=== PATIENT | male | born 1945 | race Caucasian/White ===

== ENCOUNTER → 2017-11-02 | Outpatient (CLI) | payer MEDICARE ==
--- NOTE | 2017-11-02 15:18 | CT ---
EXAMINATION TYPE: CT lumbar spine wo con DATE OF EXAM: 11/02/2017 COMPARISON: NONE HISTORY: Lower back/right leg pain. CT DLP: 1353.[address] of the lumbar spine was performed. Bone and soft tissue window settings are submitted as well as coronal and sagittal reconstructions. L1-L2: Normal disc space height. No disc herniation protrusion or central stenosis. No facet joint arthropathy. No evidence for foraminal encroachment. L2-L3: Vacuum disc changes compatible with severe degenerative disc disease. Posterior disc bulge is mild effacement ventral thecal sac. No herniation or central stenosis. Foramina are patent bilaterall y. L3-L4: Moderate degenerative disc space narrowing. Evaluation of this level is limited by streak brandee fact from pedicular screws at the L4 level. There appears to be mild disc bulge. No obvious herniatio n or central stenosis seen. L4-L5: Postoperative changes of lumbar laminectomy. Pedicular screws in place. Extensive streak artif act limits evaluation. Alignment is within normal limits. L5-S1: Postoperative changes of lumbar laminectomy. Pedicular screws in place. Extensive streak artif act limits evaluation. There is grade 1 anterolisthesis L5 on S1 measuring 7.3 mm. Examination is sahni ited with regards to exclusion of recurrent disease. No paraspinal masses are identified. Lumbar segments are free if fracture. IMPRESSION: 1. Postoperative changes of lumbar laminectomy and pedicular screw placement at L4-5 and L5-S1. Grade 1 anterolisthesis L5 on S1. Limited evaluation given streak artifact. 2. Degenerative disc disease with vacuum disc and disc bulging at L2-3.
== END | disposition home or self-care (01) ==
LOC: RADCTMAIN 14:27
PROVIDERS: ATTEND Family Medicine
DX: M43.16 Spondylolisthesis, lumbar region (principal); M51.36 Other intervertebral disc degeneration, lumbar region; Z98.890 Other specified postprocedural states
CPT/HCPCS: 72131

== ENCOUNTER → 2018-11-03 | Outpatient (CLI) | payer MEDICARE | LOC: LABWHC1 11:14 | PROVIDERS: ATTEND Psychiatry & Neurology Pain Medicine | DX: Z51.81 Encounter for therapeutic drug level monitoring (principal) | CPT/HCPCS: 36415; 82565; 84520 ==

== ENCOUNTER → 2019-02-26 | Outpatient (CLI) | payer MEDICARE ==
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
== END | disposition home or self-care (01) ==
LOC: SLEEP 13:26
PROVIDERS: ATTEND Internal Medicine Critical Care Medicine
DX: G47.33 Obstructive sleep apnea (adult) (pediatric) (principal); G89.29 Other chronic pain; M79.7 Fibromyalgia; I10 Essential (primary) hypertension; E78.5 Hyperlipidemia, unspecified; I25.10 Atherosclerotic heart disease of native coronary artery without angina pectoris; F32.9 Major depressive disorder, single episode, unspecified; F41.9 Anxiety disorder, unspecified; Z85.828 Personal history of other malignant neoplasm of skin; Z98.49 Cataract extraction status, unspecified eye; Z90.79 Acquired absence of other genital organ(s); Z98.52 Vasectomy status; Z79.82 Long term (current) use of aspirin; Z79.891 Long term (current) use of opiate analgesic; Z95.5 Presence of coronary angioplasty implant and graft; Z87.828 Personal history of other (healed) physical injury and trauma; Z98.890 Other specified postprocedural states; Z79.899 Other long term (current) drug therapy; Z99.89 Dependence on other enabling machines and devices
CPT/HCPCS: 99211

== ENCOUNTER → 2019-03-27 | Outpatient (CLI) | payer OTHER ==
--- NOTE | 2019-03-27 09:51 | MR ---
EXAMINATION TYPE: MR knee LT wo con DATE OF EXAM: 03/27/2019 COMPARISON: None HISTORY: Left knee pain TECHNIQUE: Multiplanar, multisequence imaging of the left knee is performed without IV contrast. FINDINGS: Exam is markedly limited due to artifact and resolution. Patient's had previous surgery wit h metallic rods within the tibia and femur which distorts the images. Given the limitation exam grossly the anterior cruciate and posterior cruciate ligaments are intact. Medial collateral and lateral collateral ligaments grossly intact. There appears to be evidence of thinning of the patellar cartilage suggestive of chondromalacia. Narr owing of the joint spaces is seen compatible with osteoarthritis but no erosive changes. There is some atrophy of the visualized musculature. Grossly no sizable popliteal fossa cyst. There appear to be linear tears involving the posterior and anterior horn of the lateral meniscus and posterior horn of the medial meniscus. IMPRESSION: 1. Markedly Limited exam demonstrates postsurgical changes with findings suggestive of osteoarthritis . 2. Findings are suspicious for tears involving the anterior and posterior horn of the lateral meniscu s and posterior horn of the medial meniscus.
== END | disposition home or self-care (01) ==
LOC: RADMRIMAIN 08:53
PROVIDERS: ATTEND Psychiatry & Neurology Pain Medicine
DX: M25.562 Pain in left knee (principal); Z98.890 Other specified postprocedural states; Z88.5 Allergy status to narcotic agent

== ENCOUNTER → 2020-09-01 | Outpatient (CLI) | payer MEDICARE ==
[2020-09-01 14:44] LABS: Appearance,Urine Clear (Clear); Bilirubin,Urine Negative (Negative); Blood,Urine Negative (Negative); Color,Urine Light Yellow; Glucose,Urine (UA) Negative (Negative); Ketones,Urine Negative (Negative); Leukocyte Esterase,Urine Negative (Negative); Nitrite,Urine Negative (Negative); PH, Urine 6.5 (5.0-8.0); Protein,Urine Negative (Negative); Specific Gravity,Urine 1.007 (1.001-1.035); Urobilinogen,Urine <2.0 mg/dL (<2.0)
[2020-09-01 15:09] LABS: HCT 41.9 % (39.0-53.0); HGB 13.8 gm/dL (13.0-17.5); MCH 30.8 pg (25.0-35.0); MCHC 32.8 g/dL (31.0-37.0); MCV 93.8 fL (80.0-100.0); Mean Platelet Volume 8.4; Platelet Count 165 k/uL (150-450); RBC 4.47 m/uL (4.30-5.90); RDW 12.2 % (11.5-15.5); WBC 5.6 k/uL (3.8-10.6)
[2020-09-01 15:16] LABS: ALT 28 U/L (4-49); AST 34 U/L (17-59); African American GFR (CKD) >90 (>60 ml/min/1.73 sqM); Alkaline Phosphatase 74 U/L (38-126); Anion Gap 4 mmol/L; Blood Urea Nitrogen 21 mg/dL (9-20); Calcium 9.7 mg/dL (8.4-10.2); Carbon Dioxide 32 mmol/L (22-30); Chloride 102 mmol/L (98-107); Glucose 96 mg/dL (74-99); Non-African American GFR(CKD) >90 (>60 ml/min/1.73 sqM); Potassium 4.2 mmol/L (3.5-5.1); Sodium 138 mmol/L (137-145); Total Bilirubin 0.4 mg/dL (0.2-1.3); Total Protein 6.4 g/dL (6.3-8.2)
[2020-09-01 15:33] LABS: INR 0.9 (<1.2); Partial Thromboplastin Time 25.6 sec (22.0-30.0); Prothrombin Time 9.6 sec (9.0-12.0)
== END | disposition home or self-care (01) ==
LOC: LABPAT 13:41
PROVIDERS: ATTEND Orthopaedic Surgery Sports Medicine
DX: Z01.818 Encounter for other preprocedural examination (principal); Z01.812 Encounter for preprocedural laboratory examination
CPT/HCPCS: 80053; 81003; 85027; 85610; 85730; 87070; 93005

== ENCOUNTER → 2021-02-23 | Outpatient (CLI) | payer MEDICARE ==
[2021-02-23 11:02] LABS: HCT 43.8 % (39.0-53.0); HGB 14.5 gm/dL (13.0-17.5); MCV 93.9 fL (80.0-100.0); Mean Platelet Volume 8.4; Platelet Count 184 k/uL (150-450); RBC 4.66 m/uL (4.30-5.90); RDW 12.7 % (11.5-15.5); WBC 8.1 k/uL (3.8-10.6)
[2021-02-23 11:06] LABS: Appearance,Urine Clear (Clear); Bilirubin,Urine Negative (Negative); Blood,Urine Negative (Negative); Color,Urine Light Yellow; Glucose,Urine (UA) Negative (Negative); Ketones,Urine Negative (Negative); Leukocyte Esterase,Urine Negative (Negative); Nitrite,Urine Negative (Negative); PH, Urine 6.5 (5.0-8.0); Protein,Urine Negative (Negative); Specific Gravity,Urine 1.006 (1.001-1.035); Urobilinogen,Urine <2.0 mg/dL (<2.0)
[2021-02-23 11:25] LABS: INR 0.9 (<1.2); Prothrombin Time 9.9 sec (9.0-12.0)
[2021-02-23 11:27] LABS: ALT 22 U/L (4-49); AST 26 U/L (17-59); African American GFR (CKD) >90 (>60 ml/min/1.73 sqM); Albumin 4.4 g/dL (3.5-5.0); Alkaline Phosphatase 93 U/L (38-126); Anion Gap 6 mmol/L; Blood Urea Nitrogen 27 mg/dL (9-20); Calcium 9.7 mg/dL (8.4-10.2); Carbon Dioxide 32 mmol/L (22-30); Chloride 100 mmol/L (98-107); Glucose 91 mg/dL (74-99); Non-African American GFR(CKD) 88 (>60 ml/min/1.73 sqM); Potassium 4.3 mmol/L (3.5-5.1); Sodium 138 mmol/L (137-145); Total Bilirubin 0.5 mg/dL (0.2-1.3); Total Protein 6.9 g/dL (6.3-8.2)
== END | disposition home or self-care (01) ==
LOC: LABPAT 10:19
PROVIDERS: ATTEND Orthopaedic Surgery Sports Medicine
DX: Z01.812 Encounter for preprocedural laboratory examination (principal)
CPT/HCPCS: 80053; 81003; 85027; 85610; 85730; 87070; 93005

== ENCOUNTER → 2021-03-01 | Outpatient (CLI) | payer MEDICARE ==
--- NOTE | 2021-03-01 12:10 | CT ---
EXAMINATION TYPE: CT shoulder RT wo con DATE OF EXAM: 03/01/2021 COMPARISON: None. HISTORY: Right shoulder pain, primary osteoarthritis, complete rotator cuff tear, severe glenohumeral arthritis. CT DLP: 423.10 mGycm Automated exposure control for dose reduction was used. FINDINGS: Localizer shows metallic hardware from left shoulder surgery partially imaged. There is high riding humeral head with moderate to severe narrowing at the glenohumeral joint. There is large osteophyte or bony projection from inferior medial humeral head. Extensive subchondral cysti c change in the superior lateral humeral head is present. There is some calcification along course of the distal rotator cuff tendon. The acromioclavicular joint is maintained. Some adjacent faint soft tissue calcifications are noted. No significant joint effusion. Visualized right lung is clear. IMPRESSION: As above. Findings consistent with chronic rotator cuff tear and advanced glenohumeral neena int arthropathy confirmed as detailed above.
== END | disposition home or self-care (01) ==
LOC: RADCTMAIN 11:24
PROVIDERS: ATTEND Orthopaedic Surgery Sports Medicine
DX: M75.121 Complete rotator cuff tear or rupture of right shoulder, not specified as traumatic (principal); M19.011 Primary osteoarthritis, right shoulder; M25.711 Osteophyte, right shoulder

== ENCOUNTER 2021-03-11 06:40 | Day surgery (SDC) | payer MEDICARE ==
[2021-03-08 11:02] VITALS: BMI 25.8
[~2021-03-11 06:40] MED LIST: ACETAMINOPHEN TAB 500 MG TAB PO PRN; DEXAMETHASONE SOD PHOSPHATE 4 MG/ML 1 ML VIAL IV ONE; GABAPENTIN 300 MG CAP PO PRN; HYDROmorphone 0.5 MG/0.5 ML SYRINGE IVP PRN; MELOXICAM 7.5 MG TAB PO PRN; MIDAZOLAM 2 MG/2 ML VIAL IV PRN; ONDANSETRON 4 MG/2 ML VIAL IVP ONE; ONDANSETRON 4 MG/2 ML VIAL IVP PRN; TRANEXAMIC ACID 1,000 MG in SODIUM CHLORIDE 0.9% 100 ML IVPB PRN
[2021-03-11] MEDS: LACTATED RINGERS 1,000 ML IV SCH ×3 (07:13→23:09)
[2021-03-11] MEDS ORDERED: MIDAZOLAM 2 MG/2 ML VIAL IV ONE (07:32)
[2021-03-11] MEDS ORDERED: LIDOCAINE 1% INJ 10MG/ML (20 ML MDV) ONE (08:01)
[2021-03-11] MEDS ORDERED: GLYCOPYRROLATE 0.2 MG/ML 2 ML VIAL ONE (08:01)
[2021-03-11] MEDS ORDERED: MIDAZOLAM 2 MG/2 ML VIAL ONE (08:01)
[2021-03-11] MEDS ORDERED: SODIUM CHLORIDE 0.9% 100 ML BAG ONE (08:01)
[2021-03-11] MEDS ORDERED: ROCURONIUM 10 MG/ML (5 ML VIAL) IV ONE (08:01)
[2021-03-11] MEDS ORDERED: NEOSTIGMINE 1 MG/ML 10 ML VIAL ONE (08:01)
[2021-03-11] MEDS ORDERED: SUCCINYLCHOLINE CHLORIDE 100 MG/5 ML SYR IV ONE (08:01)
[2021-03-11] MEDS ORDERED: fentaNYL (PF) 50 MCG/ML 2 ML AMP ONE (08:01)
[2021-03-11] MEDS ORDERED: ROPIVACAINE 5 MG/ML 30 ML VIAL ONE (08:01)
[2021-03-11] MEDS ORDERED: TRANEXAMIC ACID 1,000 MG/10 ML VIAL ONE (08:01)
[2021-03-11] MEDS ORDERED: ePHEDrine SULFATE/0.9% NACL/PF 50 MG/5 ML SYRINGE IV ONE (08:01)
[2021-03-11] MEDS ORDERED: PROPOFOL 10 MG/ML 20 ML VIAL IV ONE (08:01)
[2021-03-11] MEDS ORDERED: ceFAZolin 3,000 MG in SODIUM CHLORIDE 0.9% IRRIGATIO 3,000 ML IRRIGATION ONE (08:56)
[2021-03-11] MEDS ORDERED: diphenhydrAMINE 25 MG CAP PO PRN (10:16)
[2021-03-11] MEDS ORDERED: ONDANSETRON 4 MG/2 ML VIAL IVP PRN (10:16)
[2021-03-11] MEDS ORDERED: HYDROcodone/APAP 5-325MG 1 EACH TAB PO PRN ×2 (10:16→13:49)
[2021-03-11] MEDS ORDERED: METOCLOPRAMIDE 5 MG/ML 2 ML VIAL IVP PRN (10:16)
[2021-03-11] MEDS ORDERED: MORPHINE SULFATE 2 MG/ML SYRINGE IV PRN ×3 (10:16)
--- NOTE | 2021-03-11 11:20 | XR ---
Limited right shoulder HISTORY: Postop Single frontal view of the right shoulder Patient is status post right shoulder reverse arthroplasty. There is anatomic alignment in this singl e view. Lucency is present in the soft tissues, there is an indwelling drain. Distal right clavicle s hows possible prior resection or erosive change. IMPRESSION: Orthopedic follow-up.
[2021-03-11] MEDS: MORPHINE SULFATE 2 MG/ML SYRINGE IV PRN ×3 (11:37→12:19)
[2021-03-11] MEDS: HYDROcodone/APAP 5-325MG 1 EACH TAB PO PRN ×2 (13:00→23:08)
--- NOTE | 2021-03-11 13:33 | OP ---
OPERATIVE REPORT DATE OF PROCEDURE: 03/11/2021. SURGEON: Gibran Mcdonnell MD. MANAGER EDUCATION: Mazin SINGLETON. PREOPERATIVE DIAGNOSIS: Right shoulder advanced rotator cuff arthropathy. POSTOPERATIVE DIAGNOSIS: Right shoulder advanced rotator cuff arthropathy. OPERATION: Right reverse total shoulder arthroplasty. ANESTHESIA: General endotracheal. ESTIMATED BLOOD LOSS: 200 mL. COMPLICATIONS: None apparent. DRAINS: One deep drain. DISPOSITION: Postanesthesia care unit. INDICATIONS: Mr. Lee is a very pleasant 75-year-old gentleman with long-standing right shoulder pain. Workup including x-rays revealed advanced right shoulder rotator cuff arthropathy. At this point, he has failed conservative management and he would like to proceed with operative intervention. The risks of procedure were discussed with him in detail. These risks include, but are not limited to risk of infection, nerve damage, bleeding, pain, instability in the shoulder, loosening of the implants and deep infection. There is also a small risk of deep vein thrombosis which could lead to fatal pulmonary embolism. The patient understood the risks. All of his questions with regard to the risks of procedure were answered to his satisfaction. An appropriate informed consent was obtained. DESCRIPTION OF PROCEDURE: The patient identified in the preoperative holding area. The surgical site was marked by both the patient and myself. He was given 2 grams of Ancef IV for prophylactic purposes. He was then transported to the operative suite. He was placed supine on the operating room table. General anesthetic was then administered and dosed per the anesthesia department without apparent complication. Examination under anesthesia was then performed of the right shoulder. He had elevation 120 degrees, external rotation at the side was to 30 degrees. The patient was then placed into the beach chair position well-padded in preparation for surgery. Great care was taken to ensure that his cervical spine is in neutral alignment well-padded and maintained that way throughout the operative procedure. Great care was also taken to ensure that his legs were appropriately padded as well. The patient's right upper extremity was then prepped and draped in usual sterile fashion. Standard surgical pause was undertaken to ensure that appropriate preoperative antibiotics had been given and that we were operating on the correct site. All staff in the room were in agreement and we proceeded. The acromion, AC joint, clavicle and coracoid were marked with a surgical pen. A planned incision starting at the level of the clavicle and extending distally over the deltopectoral interval approximately 1 cm lateral to the coracoid was marked with a surgical pen. The incision was then made with a 10 blade scalpel. Dissection carried down sharply to the deltoid fascia. The deltopectoral interval was then identified at the level of the clavicle. A small band retractor was then placed onto the proximal deltoid. I then released the deltoid fascia on the lateral aspect of the cephalic vein. The vein was preserved and left in its bed medially. The cephalic vein was protected throughout the entire case. I then identified the clavipectoral fascia. This was incised proximally to the level of the coracoacromial ligament. The coracoacromial ligament was left intact. I then used my finger to the spread the interval between the conjoint tendon and the subscapularis. I felt for the axillary nerve which was readily palpable. I then cleared the subacromial and subdeltoid spaces of bursal and scar tissue. I then utilized a Davis retractor to hold the deltoid and expose the humeral head. He had a chronic supraspinatus tear. I then released the subscapularis in the anterior capsule. The rotator interval was identified. The course of the biceps tendon was also identified. I then released the capsule in a lazy-S fashion approximately 1 cm medial to the biceps tendon. I then continued to resect the capsule along the inferior neck in a vertical fashion to approximately the 6 o'clock position. Great care was taken to ensure that the capsule was always visualized as it was released as to avoid injuring the axillary nerve. I then brought a Dozier complaint coordinator with the arm externally rotated and abducted. I continued to release the capsule inferomedially to the 4 o'clock position. The inferior osteophytes were now removed as well. This was done with a rongeur. I then proceeded with preparation of the humerus. I removed all the goat's sommers osteophytes. I then removed the subchondral plate from the superior aspect of the humeral head utilizing a rongeur. I then used the starting reamer to gain access to the humeral canal. This was 1 cm medial to the rotator cuff insertion and approximately 1 cm posterior to the bicipital groove. I then prepared the humeral canal with hand reaming. I started with a 6 mm reamer and progressed incrementally up until firm resistance was encountered at 12 mm. The reamer handle was then left in place. I then utilized a humeral resection guide set at 30 degrees of retrotorsion. The cutting block was then set at the rotator cuff insertion. I then proceeded to osteotomized the head with an oscillating saw. I then removed the resection guide and then completed the osteotomy. I then proceeded with a trial stem placement. The trial size 12 was then broached into the canal starting with a 6 mm broach and then incrementally increasing up to a 12 mm broach. The 12 mm broach was then left in place. At this point, I did release the biceps tendon. This was tenotomized at the level of superior labrum. A bone hook was then used to pull the humerus out laterally. I inspected the joint for any loose bodies. The condition of the cuff was again inspected. He had completely torn across the supraspinatus and the anterior aspect of the infraspinatus. The Bhattman retractor was then placed on the posterior glenoid rim. The arm was placed in approximately 70 degrees of abduction and in slight flexion on the Dozier stand. I then proceeded to remove the hypertrophic labrum to definitively identify the actual glenoid. I then placed the guide. The guide hole was then made at the junction of the middle third and inferior third of the glenoid. The guide was utilized to place the pin in the center of the glenoid with an inferior tilt to the pin of approximately 10 degrees. I then proceeded to ream over the guide pin. The mini reamer was then utilized. I preferentially reamed more inferior half of the glenoid than the superior half. Again, this was done to provide a nice inferior tilt for the glenoid base plate. The mini base plate, glenoid base plate was then impacted over the guidewire. The guidewire was removed. I then placed a size 25 mm central screw. The screw had excellent purchase in bone. I was able to rotate the scapula once the screw had been firmly seated. I then proceeded to place the peripheral screws. The superior and inferior screws were 25 mm screws. The anterior and posterior screws were 20 mm x 5 mm locking screws. I then placed a size 36 glenosphere. Again, it was offset inferiorly to move the glenosphere as inferior as possible as to avoid any notching in the future. The glenosphere was then impacted onto a dry Rainey taper. It was then firmly impacted. At this point I proceeded with trial. I placed a standard tray and a standard poly onto the humeral stem. The shoulder was then reduced. It was a firm tight reduction. It was taken through full range of motion. There was no impingement. There was very minimal . The tension in the conjoint tendon appeared appropriate. I then had the tax representative open a Biomet size mini stem standard tray and a standard size polyethylene. The polyethylene was impacted onto the tray on the back table. The real stem was then impacted into the canal in 30 degrees of retrotorsion. The tray was then impacted onto the stem onto a dry Rainey taper. The shoulder was then reduced. Again, it was taken through a full range of motion. The tension was appropriate. There was no impingement. At this point in time, no further work seemed necessary. The shoulder was thoroughly irrigated with sterile saline solution with antibiotic added. A deep drain was then placed and brought out superiorly away from the incision. The subscapularis was irrepairable and was subsequently left. The 500 mg of vancomycin powder was placed deep in the wound. The deltopectoral interval was then closed provisionally with interrupted 0 Vicryl sutures. The subcutaneous tissue was then irrigated with sterile saline solution with antibiotic added. The remaining 500 mg of vancomycin powder was then placed subcutaneously. The subcutaneous tissue was then closed with 2-0 Vicryl interrupted suture and the skin was closed with a running 3-0 Quill suture. Dermabond was applied to the incision. Sterile compressive dressings were applied. The patient's right upper extremity was placed into a standard sling. All sponge and needle counts were deemed correct prior to closure. The patient tolerated the procedure without apparent complication. He was transferred to recovery room in stable condition. MMODL / IJN: [id number] /
--- NOTE | 2021-03-11 15:12 | P.ANPRN ---
Procedure Note - Anesthesia - Nerve Block Performed Right Interscalene Single Time Out Performed: Yes ([id number]) Date of Procedure: 03/11/21 Procedure Start Time: 07:32 Procedure Stop Time: 07:37 Location of Patient: PreOp Indication: Acute Post-Operative Pain, Requested by Surgeon Specifically requested for management of pain by DrSivan: Gibran Mcdonnell Sedation Type: Sedate with meaningful contact maintained Preparation: Sterile Prep Position: Supine Catheter: None Needle Types: Pajunk Needle Gauge: 21 Ultrasound used to visualize needle placement: Yes Ultrasound used to observe medication spread: Yes Injectate: 0.5% Ropivacaine (see comment for volume) (30cc) Blood Aspirated: No Pain Paresthesia on Injection Noted: No Resistance on Injection: Normal Image Stored and Saved: Yes Events: Uneventful and Well Tolerated
[2021-03-11] MEDS ORDERED: ATORVASTATIN 40 MG TAB PO SCH (21:00)
[2021-03-11] MEDS ORDERED: SENNOSIDES-DOCUSATE SODIUM 1 EACH TAB PO PRN (21:00)
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
[2021-03-11] MEDS: METOPROLOL TARTRATE 50 MG TAB PO SCH (23:09)
[2021-03-11] MEDS: DOCUSATE 100 MG CAP PO SCH (23:09)
[2021-03-11] MEDS: PREGABALIN 100 MG CAP PO SCH (23:09)
[2021-03-11] MEDS: ASPIRIN 81 MG PO SCH (23:09)
[2021-03-11] MEDS: CHOLECALCIFEROL 25 MCG (1000 IU) TABLET PO SCH (23:09)
[2021-03-12] MEDS: MORPHINE SULFATE 2 MG/ML SYRINGE IV PRN ×2 (01:20→05:24)
[2021-03-12] MEDS: LACTATED RINGERS 1,000 ML IV SCH ×2 (06:43)
[2021-03-12] MEDS ORDERED: MORPHINE SULFATE 4 MG/ML SYRINGE IV PRN (07:00)
[2021-03-12 07:29] VITALS: BP 116/65; PULSE 61; RESP 17; TEMP 98.7
[2021-03-12] MEDS ORDERED: PANTOPRAZOLE 40 MG TABLET PO SCH (07:30)
[2021-03-12] MEDS: CHOLECALCIFEROL 25 MCG (1000 IU) TABLET PO SCH (07:54)
[2021-03-12] MEDS: ASPIRIN 81 MG PO SCH (07:54)
[2021-03-12] MEDS: DOCUSATE 100 MG CAP PO SCH (07:54)
[2021-03-12] MEDS: PREGABALIN 100 MG CAP PO SCH (07:54)
[2021-03-12] MEDS: METOPROLOL TARTRATE 50 MG TAB PO SCH (07:55)
[2021-03-12] MEDS: HYDROcodone/APAP 5-325MG 1 EACH TAB PO PRN ×2 (08:00→13:15)
[2021-03-12] MEDS ORDERED: MULTIVITAMINS, THERA 1 EACH TAB PO SCH (09:00)
[2021-03-12] MEDS ORDERED: ASCORBIC ACID 500 MG TAB PO SCH (09:00)
--- NOTE | 2021-03-12 09:45 | P.DS ---
Providers Expected date of discharge: 03/12/21 Attending physician: Gibran Mcdonnell Consults: 03/11/21 10:16 Consult Physician Routine Consulting Provider: Jovon Orta Reason/Comments: post op medical management Do you want consulting provider notified?: Yes Primary care physician: Jovon Orta - Discharge Diagnosis(es) (1) Osteoarthritis of right shoulder Patient was admitted to the OR on 03/11/21 to undergo a right total shoulder arthroplasty. He had failed conservative measures as an outpatient and desired to proceed with elective surgery after given informed consent. He underwent the above procedure which he tolerated well without complication. Postoperative hospital course has remained without complication. On day of discharge he is afebrile, vital signs stable, labs within acceptable ranges, tolerating by mouth meds and diet, voiding without difficulty, positive flatus, denies abdominal pain or calf pain, pain is controlled on oral pain medication and has no new complaints. Wound is benign, neurovascular status is intact, calves are soft and nontender, abdomen soft and nontender. Review of systems is negative for numbness, tingling, fever, chills, chest pain, shortness of breath, nausea, vomiting, dizziness, headaches, slurred speech or other. Current Visit: Yes Status: Acute Priority: Medium Procedures: right TSA Patient Condition at Discharge: Good Plan - Discharge Summary Discharge Rx Participant: Yes New Discharge Prescriptions: New Docusate [Colace] 100 mg PO BID #60 capsule Doxycycline Hyclate 100 mg PO BID #10 tab HYDROcodone/APAP 10-325MG [[place] 10-325] 1 tab PO Q4HR PRN #42 tab PRN Reason: Pain No Action Omeprazole [PriLOSEC] 20 mg PO BID Metoprolol Tartrate [Lopressor] 50 mg PO BID Aspirin [Adult Low Dose Aspirin EC] 81 mg PO BID Atorvastatin [Lipitor] 40 mg PO HS Ascorbic Acid [Vitamin C] 1,000 mg PO DAILY Multivitamins, Thera [Multivitamin (formulary)] 1 tab PO DAILY Docusate [Colace] 100 mg PO BID #60 capsule HYDROcodone/APAP 5-325MG [[place] 5-325] 1 tab PO TID PRN PRN Reason: Pain Cholecalciferol [Vitamin D3 (25 Mcg = 1000 Iu)] 25 mcg PO BID Buprenorphine [Buprenorphine 10MCG/HR] 4 patch TOPICAL SA Pregabalin [Lyrica] 300 mg PO BID Discharge Medication List Metoprolol Tartrate [Lopressor] 50 mg PO BID 08/28/14 [History] Omeprazole [PriLOSEC] 20 mg PO BID 08/28/14 [History] Ascorbic Acid [Vitamin C] 1,000 mg PO DAILY 09/13/16 [History] Aspirin [Adult Low Dose Aspirin EC] 81 mg PO BID 09/13/16 [History] Atorvastatin [Lipitor] 40 mg PO HS 09/13/16 [History] Multivitamins, Thera [Multivitamin (formulary)] 1 tab PO DAILY 09/13/16 [History] Docusate [Colace] 100 mg PO BID #60 capsule 09/16/16 [Rx] Buprenorphine [Buprenorphine 10MCG/HR] 4 patch TOPICAL SA 03/08/21 [History] Cholecalciferol [Vitamin D3 (25 Mcg = 1000 Iu)] 25 mcg PO BID 03/08/21 [History] HYDROcodone/APAP 5-325MG [[place] 5-325] 1 tab PO TID PRN 03/08/21 [History] Pregabalin [Lyrica] 300 mg PO BID 03/08/21 [History] Docusate [Colace] 100 mg PO BID #60 capsule 03/12/21 [Rx] Doxycycline Hyclate 100 mg PO BID #10 tab 03/12/21 [Rx] HYDROcodone/APAP 10-325MG [[place] 10-325] 1 tab PO Q4HR PRN #42 tab 03/12/21 [Rx] Follow up Appointment(s)/Referral(s): Gibran Mcdonnell MD [STAFF PHYSICIAN] - 10 Days Activity/Diet/Wound Care/Special Instructions: Keep wound clean and dry Take meds as directed Follow-up with Dr. Mcdonnell in office Maintain sling, nonweightbearing May shower in 3 days if no bleeding Discharge Disposition: HOME SELF-CARE
[2021-03-12 10:00] LABS: Basophils # (A) 0.03 X 10*3/uL (0.00-0.10); Basophils % (A) 0.3 %; Eosinophils # (A) 0.09 X 10*3/uL (0.04-0.35); Eosinophils % (A) 0.8 %; HCT 39.3 % (39.6-50.0); HGB 12.5 g/dL (13.0-17.0); Lymphocytes # (A) 1.97 X 10*3/uL (0.90-5.00); Lymphocytes % (A) 17.6 %; MCH 30.6 pg (27.0-32.0); MCHC 31.8 g/dL (32.0-37.0); MCV 96.3 fL (80.0-97.0); Mean Platelet Volume 11.4 fL (9.5-12.2); Monocytes # (A) 0.74 X 10*3/uL (0.20-1.00); Monocytes % (A) 6.6 %; Neutrophils # (A) 8.36 X 10*3/uL (1.80-7.70); Neutrophils % (A) 74.4 %; Platelet Count 165 X 10*3/uL (140-440); RBC 4.08 X 10*6/uL (4.40-5.60); RDW 12.9 % (11.5-14.5); WBC 11.22 X 10*3/uL (4.50-10.00)
== END 2021-03-12 13:30 | disposition home or self-care (01) ==
LOC: OR 06:40 → EDSTATUS 07:30 → 4SSUR 12:24 → OR 03-12 13:30
PROVIDERS: ATTEND Orthopaedic Surgery Sports Medicine
DX: M19.011 Primary osteoarthritis, right shoulder (principal); I10 Essential (primary) hypertension; E78.5 Hyperlipidemia, unspecified; H40.9 Unspecified glaucoma; Z85.828 Personal history of other malignant neoplasm of skin; G62.9 Polyneuropathy, unspecified; Z79.899 Other long term (current) drug therapy; Z88.5 Allergy status to narcotic agent; Z87.891 Personal history of nicotine dependence
CPT/HCPCS: 64415; 76942; 85025; 88300; 73020; 23472; C1776; J2250; J1100; J2710; J0690 ×2; J2405; J2001; J3010; J2270 ×2; J2795; J0330; J2704

== ENCOUNTER → 2023-11-22 | Outpatient (CLI) | payer MEDICARE ==
[2023-11-22 15:49] LABS: Basophils # (A) 0.04 X 10*3/uL (0.00-0.10); Basophils % (A) 0.7 %; Eosinophils # (A) 0.29 X 10*3/uL (0.04-0.35); Eosinophils % (A) 4.7 %; Lymphocytes # (A) 1.85 X 10*3/uL (0.90-5.00); Lymphocytes % (A) 30.1 %; MCH 30.2 pg (27.0-32.0); MCHC 32.5 g/dL (32.0-37.0); MCV 92.8 FL (80.0-97.0); Mean Platelet Volume 11.3 FL (9.5-12.2); Monocytes # (A) 0.46 X 10*3/uL (0.20-1.00); Monocytes % (A) 7.5 %; NRBC Per 100 WBC 0 X 10*3/uL (0.00-0.01); Neutrophils # (A) 3.49 X 10*3/uL (1.80-7.70); Neutrophils % (A) 56.8 %; Platelet Count 166 X 10*3/uL (140-440); RBC 4.31 X 10*6/uL (4.40-5.60); RDW 12.3 % (11.5-14.5); WBC 6.14 X 10*3/uL (4.50-10.00)
[2023-11-22 16:11] LABS: BUN/Creat Ratio 27.33 Ratio (12.00-20.00); Blood Urea Nitrogen 24.6 mg/dL (9.0-27.0); Calcium 9.3 mg/dL (8.7-10.3); Carbon Dioxide 29.1 mmol/L (21.6-31.8); Chloride 103 mmol/L (96-109); Glucose 88 mg/dL (70-110); Potassium 4.3 mmol/L (3.5-5.5); Sodium 141 mmol/L (135-145)
== END | disposition home or self-care (01) ==
LOC: LABPAT 10:47
PROVIDERS: ATTEND Urology
DX: Z01.812 Encounter for preprocedural laboratory examination (principal); N40.1 Benign prostatic hyperplasia with lower urinary tract symptoms; N21.0 Calculus in bladder
CPT/HCPCS: 36415; 80048; 85025

== ENCOUNTER 2023-11-30 09:56 | Day surgery (SDC) | payer MEDICARE ==
[2023-11-24 15:37] VITALS: BMI 30.5
--- NOTE | 2023-11-26 10:32 | P.GSHP ---
History of Present Illness H&P Date: 11/26/23 Chief Complaint: Hematuria The patient is a 78-year-old white male who underwent a TURP in 1998. He has recently experienced intermittent gross hematuria. CT scan showed no renal abnormalities. Cystoscopy shows significant regrowth of tissue along the prostatic floor extending intravesically. There are 2 small bladder calculi. - Cardiovascular Cardiovascular: Reports high blood pressure - Genitourinary (Male) Genitourinary: Reports hematuria, Reports urinary frequency, Reports urinary hesitancy, Denies dysuria Past Medical History Past Medical History: Asthma, Coronary Artery Disease (CAD), Cancer, Fibromyalgia, GERD/Reflux, Hyperlipidemia, Hypertension, Myocardial Infarction ([place]), Osteoarthritis (OA), Prostate Disorder, Sleep Apnea/CPAP/BIPAP Additional Past Medical History / Comment(s): admission to [facility] Aug 2023 for sepsis due to bladder stones, hx neuropathy-causing abdominal pain,neuropathy to ivory hand and ivory lower extremities-uses a cane, enlarged prostate, skin cancer Last Myocardial Infarction Date:: 2012 History of Any Multi-Drug Resistant Organisms: None Reported Past Surgical History: Back Surgery, Heart Catheterization With Stent, Orthopedic Surgery, Prostate Surgery Additional Past Surgical History / Comment(s): vasectomy,ivory knee surgery, "prostate reduction", hemorrhoidectomy, rt carpal tunnel, rt shoulder rotator cuff x 2, ivory cataracts, skin cancer removed from under rt chin, 2 cardiac stents, lumbar fusion, colonoscopy, vertigo Past Anesthesia/Blood Transfusion Reactions: No Reported Reaction, Motion Sickness, Postoperative Nausea & Vomiting (PONV) Additional Past Anesthesia/Blood Transfusion Reaction / Comment(s): vertigo. no hx blood transfusion Date of Last Stent Placement:: Smoking Status: Former smoker - Past Family History Mother Family Medical History: Cancer Additional Family Medical History / Comment(s): pancreatic Father Family Medical History: No Reported History Brother(s) Family Medical History: CVA/TIA, Myocardial Infarction ([place]) Additional Family Medical History / Comment(s): many health problems Daughter(s) Family Medical History: CVA/TIA Son(s) Family Medical History: No Reported History Medications and Allergies Home Medications Medication Instructions Recorded Confirmed Type Metoprolol Tartrate [Lopressor] 50 mg PO BID 08/28/14 11/24/23 History Ascorbic Acid [Vitamin C] 1,000 mg PO DAILY 09/13/16 11/24/23 History Atorvastatin [Lipitor] 40 mg PO HS 09/13/16 11/24/23 History Multivitamins, Thera [Multivitamin 1 tab PO DAILY 09/13/16 11/24/23 History (formulary)] Buprenorphine [Buprenorphine 1 patch TOPICAL Q7D 03/08/21 11/24/23 History 10MCG/HR] Cholecalciferol [Vitamin D3 (25 25 mcg PO BID 03/08/21 11/24/23 History Mcg = 1000 Iu)] Pregabalin [Lyrica] 300 mg PO BID 03/08/21 11/24/23 History Docusate [Colace] 100 mg PO BID #60 capsule 03/12/21 11/24/23 Rx Finasteride [Proscar] 5 mg PO HS 11/24/23 11/24/23 History Lactulose 10 gm PO DAILY PRN 11/24/23 11/24/23 History Tamsulosin HCl [Flomax] 0.4 mg PO BID 11/24/23 11/24/23 History diazePAM [Valium] 5 mg PO BID PRN 11/24/23 11/24/23 History oxyCODONE HCL/ACETAMINOPHEN 1 tab PO TID PRN 11/24/23 11/24/23 History [Percocet 2.5-325 mg] Allergies Allergy/AdvReac Type Severity Reaction Status Date / Time hydromorphone [From Dilaudid] AdvReac Hallucinati Verified 11/24/23 14:49 ons Surgical - Exam - General well developed, well nourished, no distress - Abdomen Abdomen: soft, non tender, no guarding, no rigid, no rebound - Genitourinary normal penis with no external lesions, testicles non-tender - Rectum Rectum: normal sphincter tone, no masses, other (Prostate moderately enlarged and smooth.) - Psychiatric oriented to time, oriented to person, oriented to place, speech is normal, memory intact Assessment and Plan (1) Benign prostatic hyperplasia with lower urinary tract symptoms Status: Acute Code(s): N40.1 - BENIGN PROSTATIC HYPERPLASIA WITH LOWER URINARY TRACT SYMP SNOMED Code(s): 157340908 (2) Calculus in bladder Status: Acute Code(s): N21.0 - CALCULUS IN BLADDER SNOMED Code(s): 56147884 Plan: Cystoscopy with cystolithotripsy, transurethral resection of prostate (TURP). The procedure has been reviewed in detail with the patient. He has been made aware of potential risks, which include anesthesia, bleeding, infection, incontinence, and retrograde ejaculation. He also understands that his voiding symptoms may fail to resolve completely.
[~2023-11-30 09:56] MED LIST changes: -ACETAMINOPHEN TAB 500 MG TAB PO PRN; -DEXAMETHASONE SOD PHOSPHATE 4 MG/ML 1 ML VIAL IV ONE; -GABAPENTIN 300 MG CAP PO PRN; -HYDROmorphone 0.5 MG/0.5 ML SYRINGE IVP PRN; +LIDOCAINE 1% (10MG/ML) FOR IV START INTRADERMA PRN; -MELOXICAM 7.5 MG TAB PO PRN; -MIDAZOLAM 2 MG/2 ML VIAL IV PRN; -ONDANSETRON 4 MG/2 ML VIAL IVP ONE; -ONDANSETRON 4 MG/2 ML VIAL IVP PRN; -TRANEXAMIC ACID 1,000 MG in SODIUM CHLORIDE 0.9% 100 ML IVPB PRN; +droPERidol 5 MG/2 ML VIAL IVP ONE
[2023-11-30] MEDS: LACTATED RINGERS 1,000 ML IV SCH (10:35)
[2023-11-30] MEDS: ONDANSETRON 4 MG/2 ML VIAL IVP ONE (10:41)
[2023-11-30] MEDS: DEXAMETHASONE SOD PHOSPHATE 4 MG/ML 1 ML VIAL IV ONE (10:41)
[2023-11-30 10:53] VITALS: RESP 16
[2023-11-30] MEDS ORDERED: GLYCOPYRROLATE 0.2 MG/ML 2 ML VIAL ONE (11:58)
[2023-11-30] MEDS ORDERED: ePHEDrine 50 MG/ML 1 ML VIAL ONE (11:58)
[2023-11-30] MEDS ORDERED: NEOSTIGMINE 1 MG/ML 10 ML VIAL ONE (11:58)
[2023-11-30] MEDS ORDERED: KETOROLAC 15 MG/ML 1 ML VIAL ONE (11:58)
[2023-11-30] MEDS ORDERED: FUROSEMIDE 10 MG/ML 2 ML VIAL ONE (11:58)
[2023-11-30] MEDS ORDERED: ROCURONIUM 10 MG/ML (5 ML VIAL) IV ONE (11:58)
[2023-11-30] MEDS ORDERED: SUCCINYLCHOLINE CHLORIDE 200 MG/10 ML VIAL IV ONE (11:58)
[2023-11-30] MEDS ORDERED: PROPOFOL 10 MG/ML 20 ML VIAL IV ONE (11:58)
[2023-11-30] MEDS ORDERED: fentaNYL (PF) 50 MCG/ML 2 ML AMP ONE (11:58)
[2023-11-30] MEDS ORDERED: LIDOCAINE 1% INJ 10MG/ML (20 ML MDV) ONE (11:58)
[2023-11-30 15:03] VITALS: TEMP 97.9
[2023-11-30] MEDS: fentaNYL (PF) 50 MCG/ML 2 ML AMP IV PRN (15:07)
[2023-11-30 17:01] VITALS: BP 138/74; PULSE 74
--- NOTE | 2023-12-07 10:40 | P.OP ---
Date of Procedure: 11/30/23 Preoperative Diagnosis: Bladder calculus, BPH with obstruction Postoperative Diagnosis: Same Procedure(s) Performed: Cystoscopy, cystoscopy lithotripsy, bipolar transurethral resection of prostate (TURP) Anesthesia: NANETTE Surgeon: Thomas Hope Estimated Blood Loss (ml): 100 IV fluids (ml): 700 Pathology: other (Prostate chips) Condition: stable Disposition: PACU Indications for Procedure: The patient is a 78-year-old white male who underwent a TURP in 1998. He has recently experienced intermittent gross hematuria. CT scan showed no renal abnormalities. Cystoscopy shows significant regrowth of tissue along the prostatic floor extending intravesically. There are 2 small bladder calculi. Operative Findings: 1.5 to 2.0 cm bladder calculus, fragmented and removed completely. Significant left lateral lobe prostatic regrowth, fully resected. Fully resected. fully resected. Description of Procedure: The patient was taken to the operating room and placed in the dorsal lithotomy position, with legs supported in Marko stirrups. The external genitalia was prepped and draped sterilely. The 30 lens was used to introduce the 21-Slovenian Mccauley cystoscopic sheath through the urethra and into the bladder under direct vision. The urethra appeared normal. The prostate showed evidence of significant left lateral lobe enlargement extending intravesically. The bladder was examined in its entirety. The ureteral orifices appeared normal. A 2 cm bladder calculus was seen. No tumors were seen. No diverticuli were seen. Using the 550 micron Holmium laser probe, lithotripsy was performed. Li thotripsy was continued until all calculus fragments could be removed using the Ellik evacuator. Once this was completed, the bladder was inspected. There was no active bleeding, and no evidence of bladder perforation. The cystoscope was removed. The 25-Slovenian ACMI resectoscope sheath was introduced into the bladder. Using the bipolar cutting loop, the left lateral lobe was resected down to the surgical capsule. The floor of the prostate was then resected, proximal to the verumontanum. The prostatic fossa was then carefully examined, and any areas of bleeding were controlled with electrocautery. Excellent hemostasis was attained. The resectoscope was withdrawn into the bulbous urethra. The external urinary sphincter remained intact. The prostatic fossa was open. The Ellik evacuator was used to remove all prostate chips from the bladder. These were saved and sent for pathologic examination. The resectoscope was removed, and a 20 Slovenian Fiore catheter was placed. The return was essentially clear. The patient tolerated the procedure well was taken to the recovery room in stable condition.
== END 2023-11-30 17:03 | disposition home or self-care (01) ==
LOC: OR 09:56
PROVIDERS: ATTEND Urology
DX: N41.1 Chronic prostatitis (principal); N13.8 Other obstructive and reflux uropathy; N40.1 Benign prostatic hyperplasia with lower urinary tract symptoms; N21.0 Calculus in bladder; J45.909 Unspecified asthma, uncomplicated; I25.10 Atherosclerotic heart disease of native coronary artery without angina pectoris; M79.7 Fibromyalgia; K21.9 Gastro-esophageal reflux disease without esophagitis; E78.5 Hyperlipidemia, unspecified; I10 Essential (primary) hypertension; I25.2 Old myocardial infarction; M19.90 Unspecified osteoarthritis, unspecified site; N42.9 Disorder of prostate, unspecified; G47.33 Obstructive sleep apnea (adult) (pediatric); G62.9 Polyneuropathy, unspecified; Z85.828 Personal history of other malignant neoplasm of skin; Z95.5 Presence of coronary angioplasty implant and graft; Z90.79 Acquired absence of other genital organ(s); Z98.890 Other specified postprocedural states; Z87.891 Personal history of nicotine dependence; Z82.3 Family history of stroke; Z82.49 Family history of ischemic heart disease and other diseases of the circulatory system; Z79.51 Long term (current) use of inhaled steroids; Z79.899 Other long term (current) drug therapy; Z88.5 Allergy status to narcotic agent
CPT/HCPCS: 88305; 82365; 52601; 52317; C1758; J0330; J1100; J1940; J2710; J0690; J2405; J2001; J3010; J1885; J2704

== ENCOUNTER 2023-12-02 08:01 | Observation (INO) | payer MEDICARE ==
--- NOTE | 2023-12-02 08:14 | ED ---
General Adult HPI - General Chief complaint: Headache Stated complaint: Headache Time Seen by Provider: 12/02/23 08:04 Source: patient, EMS, RN notes reviewed Mode of arrival: EMS Limitations: no limitations - History of Present Illness Initial comments: Patient is a pleasant 78-year-old male present to the emergency department with concern with headache. Onset of symptoms was yesterday afternoon. Headache was gradual onset and progressively worsened. Headache is starting to become severe. Patient does have history of similar headache previously after previous surgical procedure. Patient also had a surgical procedure 2 days ago. Patient had retrieval of kidney stone. Patient did have Fiore catheter placed. Patient has noticed some blood in the bag. Patient states he is getting good urine output still. Patient only has mild lower abdominal discomfort. - Related Data Home Medications Medication Instructions Recorded Confirmed Metoprolol Tartrate [Lopressor] 50 mg PO BID 08/28/14 11/30/23 Ascorbic Acid [Vitamin C] 1,000 mg PO DAILY 09/13/16 11/30/23 Atorvastatin [Lipitor] 40 mg PO HS 09/13/16 11/30/23 Multivitamins, Thera [Multivitamin 1 tab PO DAILY 09/13/16 11/30/23 (formulary)] Buprenorphine [Buprenorphine 1 patch TOPICAL Q7D 03/08/21 11/30/23 10MCG/HR] Cholecalciferol [Vitamin D3 (25 25 mcg PO BID 03/08/21 11/30/23 Mcg = 1000 Iu)] Pregabalin [Lyrica] 300 mg PO BID 03/08/21 11/30/23 Finasteride [Proscar] 5 mg PO HS 11/24/23 11/30/23 Lactulose 10 gm PO DAILY PRN 11/24/23 11/30/23 Tamsulosin HCl [Flomax] 0.4 mg PO BID 11/24/23 11/30/23 diazePAM [Valium] 5 mg PO BID PRN 11/24/23 11/30/23 oxyCODONE HCL/ACETAMINOPHEN 1 tab PO TID PRN 11/24/23 11/30/23 [Percocet 2.5-325 mg] Previous Rx's Medication Instructions Recorded Docusate [Colace] 100 mg PO BID #60 capsule 03/12/21 Allergies Allergy/AdvReac Type Severity Reaction Status Date / Time hydromorphone [From Dilaudid] AdvReac Hallucinati Verified 12/02/23 08:06 ons Review of Systems ROS Statement: Those systems with pertinent positive or pertinent negative responses have been documented in the HPI. ROS Other: All systems not noted in ROS Statement are negative. Constitutional: Denies: fever Eyes: Denies: eye pain ENT: Denies: ear pain Respiratory: Denies: dyspnea Cardiovascular: Denies: chest pain Neurological: Reports: headache. Denies: weakness Past Medical History Past Medical History: Asthma, Coronary Artery Disease (CAD), Cancer, Fibromyalgi a, GERD/Reflux, Hyperlipidemia, Hypertension, Myocardial Infarction ([place]), Osteoarthritis (OA), Prostate Disorder, Sleep Apnea/CPAP/BIPAP Additional Past Medical History / Comment(s): neuropathy-causing abdominal pain, enlarged prostate, skin cancer Last Myocardial Infarction Date:: 2012 History of Any Multi-Drug Resistant Organisms: None Reported Past Surgical History: Back Surgery, Heart Catheterization With Stent, Orthopedic Surgery, Prostate Surgery Additional Past Surgical History / Comment(s): vasectomy,ivory knee surgery, "prostate reduction", hemorrhoidectomy, rt carpal tunnel, rt shoulder rotator cuff x 2, ivory cataracts, skin cancer removed from under rt chin, 2 cardiac stents, lumbar fusion, colonoscopy, vertigo Past Anesthesia/Blood Transfusion Reactions: No Reported Reaction Additional Past Anesthesia/Blood Transfusion Reaction / Comment(s): vertigo Date of Last Stent Placement:: 2012 Past Psychological History: No Psychological Hx Reported Smoking Status: Never smoker Past Alcohol Use History: None Reported Additional Past Alcohol Use History / Comment(s): quit smoking 25 yrs ago, smoked for 20 yrs- up to 2 PPD Past Drug Use History: None Reported - Past Family History Mother Family Medical History: Cancer Additional Family Medical History / Comment(s): pancreatic Father Family Medical History: No Reported History Brother(s) Family Medical History: CVA/TIA, Myocardial Infarction ([place]) Additional Family Medical History / Comment(s): many health problems Daughter(s) Family Medical History: CVA/TIA Son(s) Family Medical History: No Reported History General Exam Limitations: no limitations General appearance: alert, in no apparent distress Head exam: Present: atraumatic Eye exam: Present: normal appearance, PERRL, EOMI ENT exam: Present: normal oropharynx Neck exam: Present: normal inspection. Absent: tenderness, meningismus Respiratory exam: Present: normal lung sounds bilaterally Cardiovascular Exam: Present: regular rate, normal rhythm GI/Abdominal exam: Present: soft. Absent: tenderness Extremities exam: Present: normal inspection Neurological exam: Present: alert, CN II-XII intact. Absent: motor sensory d eficit Expanded Neurological exam: Present: protecting the airway Speech: Present: fluid speech Cranial nerves: EOM's Intact: Normal Motor strength exam: RUE: 5, LUE: 5, RLE: 5, LLE: 5 Eye Response: (4) open spontaneously Motor Response: (6) obeys commands Verbal Response: (5) oriented Psychiatric exam: Present: normal affect, normal mood Skin exam: Present: normal color Course Vital Signs 12/02/23 12/02/23 12/02/23 08:02 09:20 10:55 Temperature 98.5 F Pulse Rate 90 98 Respiratory 18 18 18 Rate Blood Pressure 146/78 135/87 O2 Sat by Pulse 98 Oximetry 12/02/23 11:35 Temperature Pulse Rate 77 Respiratory 20 Rate Blood Pressure 135/87 O2 Sat by Pulse 96 Oximetry Medical Decision Making - Medical Decision Making Was pt. sent in by a medical professional or institution (, PA, BOOKKEEPER ASSISTANT, urgent care, hospital, or retirement...) When possible be specific @ -No Did you speak to anyone other than the patient for history (EMS, parent, family, police, friend...)? What history was obtained from this source @ - arrives later and provides additional history as far as her concerns for confusion, patient not remembering things well and unable to remember the year Did you review nursing and triage notes (agree or disagree)? Why? @ -I reviewed and agree with nursing and triage notes Were old charts reviewed (outside hosp., previous admission, EMS record, old EKG, old radiological studies, urgent care reports/EKG's, retirement records)? Report findings @ -Previous procedure reviewed Differential Diagnosis (chest pain, altered mental status, abdominal pain women, abdominal pain men, vaginal bleeding, weakness, fever, dyspnea, syncope, headache, dizziness, GI bleed, back pain, seizure, CVA, palpatations, mental health, musculoskeletal)? @ -Not applicable EKG interpreted by me (3pts min.). @ -As above X-rays interpreted by me (1pt min.). @ -None done CT interpreted by me (1pt min.). @ -CT scan of the brain shows no acute abnormality. U/S interpreted by me (1pt. min.). @ -None done What testing was considered but not performed or refused? (CT, X-rays, U/S, labs)? Why? @ -None What meds were considered but not given or refused? Why? @ -None Did you discuss the management of the patient with other professionals (professionals i.e. , PA, BOOKKEEPER ASSISTANT, lab, RT, psych nurse, vp digital marketing social media and crm, setter helper, teacher, sanitation officer, trimming caser)? Give summary @ -Case was discussed with Dr. Irwin who will admit his patient Was smoking cessation discussed for >3mins.? @ -No Was critical care preformed (if so, how long)? @ -No Were there social determinants of health that impacted care today? How? (Homelessness, low income, unemployed, alcoholism, drug addiction, transportation, low edu. Level, literacy, decrease access to med. care, f[facility], rehab)? @ -No Was there de-escalation of care discussed even if they declined (Discuss DNR or withdrawal of care, Hospice)? DNR status @ -No What co-morbidities impacted this encounter? (DM, HTN, Smoking, COPD, CAD, Cancer, CVA, ARF, Chemo, Hep., AIDS, mental health diagnosis, sleep apnea, morbid obesity)? @ -None Was patient admitted / discharged? Hospital course, mention meds given and route, prescriptions, significant lab abnormalities, going to OR and other pertinent info. @ -Patient reevaluated and is somewhat improved. Patient and family are not comfortable with discharge home. Patient will be admitted for further evaluation. Undiagnosed new problem with uncertain prognosis? @ -No Drug Therapy requiring intensive monitoring for toxicity (Heparin, Nitro, Insulin, Cardizem)? @ -No Were any procedures done? @ -No Diagnosis/symptom? @ -Confusion Acute, or Chronic, or Acute on Chronic? @ -Acute Uncomplicated (without systemic symptoms) or Complicated (systemic symptoms)? @ -Default Side effects of treatment? @ -No Exacerbation, Progression, or Severe Exacerbation? @ -No Poses a threat to life or bodily function? How? (Chest pain, USA, MT, pneumonia, PE, COPD, DKA, ARF, appy, cholecystitis, CVA, Diverticulitis, Homicidal, Suicidal, threat to staff... and all critical care pts) @ -No - Lab Data Result diagrams: 12/02/23 08:17 12/02/23 08:17 Lab Results 12/02/23 12/02/23 12/02/23 Range/Units 08:17 08:17 08:17 WBC 6.6 (3.8-10.6) k/uL RBC 4.72 (4.30-5.90) m/uL Hgb 14.9 (13.0-17.5) gm/dL Hct 43.2 (39.0-53.0) % MCV 91.5 (80.0-100.0) fL MCH 31.6 (25.0-35.0) pg MCHC 34.5 (31.0-37.0) g/dL RDW 12.7 (11.5-15.5) % Plt Count 115 L (150-450) k/uL MPV 8.3 Neutrophils % 77 % Lymphocytes % 12 % Monocytes % 7 % Eosinophils % 1 % Basophils % 1 % Neutrophils # 5.1 (1.3-7.7) k/uL Lymphocytes # 0.8 L (1.0-4.8) k/uL Monocytes # 0.5 (0-1.0) k/uL Eosinophils # 0.0 (0-0.7) k/uL Basophils # 0.0 (0-0.2) k/uL PT 10.7 (10.0-12.5) sec INR 1.0 (<1.2) APTT 26.5 (22.0-30.0) sec Sodium 139 (137-145) mmol/L Potassium 3.9 (3.5-5.1) mmol/L Chloride 106 (98-107) mmol/L Carbon Dioxide 27 (22-30) mmol/L Anion Gap 6 mmol/L BUN 11 (9-20) mg/dL Creatinine 0.64 L (0.66-1.25) mg/dL Est GFR (CKD-EPI)AfAm >90 (>60 ml/min/1.73 sqM) Est GFR (CKD-EPI)NonAf >90 (>60 ml/min/1.73 sqM) Glucose 144 H (74-99) mg/dL Calcium 9.4 (8.4-10.2) mg/dL Total Bilirubin 0.8 (0.2-1.3) mg/dL AST 48 (17-59) U/L ALT 37 (4-49) U/L Alkaline Phosphatase 64 (38-126) U/L Total Protein 6.4 (6.3-8.2) g/dL Albumin 4.0 (3.5-5.0) g/dL Urine Color Urine Appearance (Clear) Urine pH (5.0-8.0) Ur Specific Esmond (1.001-1.035) Urine Protein (Negative) Urine Glucose (UA) (Negative) Urine Ketones (Negative) Urine Blood (Negative) Urine Nitrite (Negative) Urine Bilirubin (Negative) Urine Urobilinogen (<2.0) mg/dL Ur Leukocyte Esterase (Negative) Urine RBC (0-5) /hpf Urine WBC (0-5) /hpf Urine Mucus (None) /hpf 12/02/23 Range/Units 09:00 WBC (3.8-10.6) k/uL RBC (4.30-5.90) m/uL Hgb (13.0-17.5) gm/dL Hct (39.0-53.0) % MCV (80.0-100.0) fL MCH (25.0-35.0) pg MCHC (31.0-37.0) g/dL RDW (11.5-15.5) % Plt Count (150-450) k/uL MPV Neutrophils % % Lymphocytes % % Monocytes % % Eosinophils % % Basophils % % Neutrophils # (1.3-7.7) k/uL Lymphocytes # (1.0-4.8) k/uL Monocytes # (0-1.0) k/uL Eosinophils # (0-0.7) k/uL Basophils # (0-0.2) k/uL PT (10.0-12.5) sec INR (<1.2) APTT (22.0-30.0) sec Sodium (137-145) mmol/L Potassium (3.5-5.1) mmol/L Chloride (98-107) mmol/L Carbon Dioxide (22-30) mmol/L Anion Gap mmol/L BUN (9-20) mg/dL Creatinine (0.66-1.25) mg/dL Est GFR (CKD-EPI)AfAm (>60 ml/min/1.73 sqM) Est GFR (CKD-EPI)NonAf (>60 ml/min/1.73 sqM) Glucose (74-99) mg/dL Calcium (8.4-10.2) mg/dL Total Bilirubin (0.2-1.3) mg/dL AST (17-59) U/L ALT (4-49) U/L Alkaline Phosphatase (38-126) U/L Total Protein (6.3-8.2) g/dL Albumin (3.5-5.0) g/dL Urine Color Light Brown Urine Appearance Cloudy (Clear) Urine pH 8.0 (5.0-8.0) Ur Specific Esmond 1.014 (1.001-1.035) Urine Protein 2+ H (Negative) Urine Glucose (UA) Negative (Negative) Urine Ketones Negative (Negative) Urine Blood Large H (Negative) Urine Nitrite Negative (Negative) Urine Bilirubin Negative (Negative) Urine Urobilinogen <2.0 (<2.0) mg/dL Ur Leukocyte Esterase Large H (Negative) Urine RBC >182 H (0-5) /hpf Urine WBC 30 H (0-5) /hpf Urine Mucus Rare H (None) /hpf Disposition Clinical Impression: Confusion Disposition: ADMITTED IP TO THIS HOSP Is patient prescribed a controlled substance at d/c from ED?: No Referrals: Jovon Orta MD [Primary Care Provider] - 1-2 days Time of Disposition: 12:32
--- NOTE | 2023-12-02 08:37 | CT ---
EXAMINATION TYPE: CT brain wo con DATE OF EXAM: 12/02/2023 HISTORY: headache, weakness CT DLP: 1087.4 mGycm. Automated Exposure Control for Dose Reduction was Utilized. TECHNIQUE: CT scan of the head is performed without contrast. COMPARISON: None. FINDINGS: There is no acute intracranial hemorrhage or midline shift identified. There is mild to m oderate diffuse ventricular and sulcal prominence with sulcal prominence greatest over the bilateral frontal lobes. Cool-white matter differentiation is maintained. Soft tissue density consistent with c erumen is seen in the bilateral external auditory canals greater on the left. Nasal septum is slightl y deviated to right of midline. Bilateral aphakia is present. Partial opacification of left anterior ethmoid sinuses otherwise paranasal sinuses are clear. Cerebellar tonsils extend to level of foramen magnum. IMPRESSION: No acute intracranial hemorrhage or midline shift.
[2023-12-02 08:39] LABS: Basophils % (A) 1 %; Eosinophils % (A) 1 %; HCT 43.2 % (39.0-53.0); HGB 14.9 gm/dL (13.0-17.5); Lymphocytes # (A) 0.8 k/uL (1.0-4.8); Lymphocytes % (A) 12 %; MCH 31.6 pg (25.0-35.0); MCHC 34.5 g/dL (31.0-37.0); MCV 91.5 fL (80.0-100.0); Mean Platelet Volume 8.3; Monocytes # (A) 0.5 k/uL (0-1.0); Monocytes % (A) 7 %; Neutrophils # (A) 5.1 k/uL (1.3-7.7); Neutrophils % (A) 77 %; Platelet Count 115 k/uL (150-450); RBC 4.72 m/uL (4.30-5.90); RDW 12.7 % (11.5-15.5); WBC 6.6 k/uL (3.8-10.6)
[2023-12-02] MEDS: METOCLOPRAMIDE 5 MG/ML 2 ML VIAL IVP STA (08:49)
[2023-12-02] MEDS: ACETAMINOPHEN IV (For NPO) 1,000 MG in EMPTY BAG 1 BAG IVPB STA (08:49)
[2023-12-02] MEDS: SODIUM CHLORIDE 0.9% 1,000 ML IV STA (08:50)
[2023-12-02 08:52] LABS: Partial Thromboplastin Time 26.5 sec (22.0-30.0); Prothrombin Time 10.7 sec (10.0-12.5)
[2023-12-02 09:03] LABS: ALT 37 U/L (4-49); AST 48 U/L (17-59); African American GFR (CKD) >90 (>60 ml/min/1.73 sqM); Alkaline Phosphatase 64 U/L (38-126); Anion Gap 6 mmol/L; Blood Urea Nitrogen 11 mg/dL (9-20); Calcium 9.4 mg/dL (8.4-10.2); Carbon Dioxide 27 mmol/L (22-30); Chloride 106 mmol/L (98-107); Glucose 144 mg/dL (74-99); Non-African American GFR(CKD) >90 (>60 ml/min/1.73 sqM); Potassium 3.9 mmol/L (3.5-5.1); Sodium 139 mmol/L (137-145); Total Bilirubin 0.8 mg/dL (0.2-1.3); Total Protein 6.4 g/dL (6.3-8.2)
[2023-12-02 09:45] LABS: Appearance,Urine Cloudy (Clear); Bilirubin,Urine Negative (Negative); Blood,Urine Large (Negative); Color,Urine Light Brown; Glucose,Urine (UA) Negative (Negative); Ketones,Urine Negative (Negative); Leukocyte Esterase,Urine Large (Negative); Mucus,Urine Rare /hpf; Nitrite,Urine Negative (Negative); Protein,Urine 2+ (Negative); RBC,Urine >182 /hpf (0-5); Specific Gravity,Urine 1.014 (1.001-1.035); Urobilinogen,Urine <2.0 mg/dL (<2.0); WBC,Urine 30 /hpf (0-5)
[2023-12-02] MEDS: MORPHINE SULFATE 4 MG/ML SYRINGE IVP STA (10:52)
[2023-12-02] MEDS ORDERED: NALOXONE 0.4 MG/ML 1 ML VIAL IV PRN (12:29)
--- NOTE | 2023-12-02 13:15 | XR ---
EXAMINATION TYPE: XR abdomen 1V DATE OF EXAM: 12/02/2023 12:50 PM CLINICAL INDICATION:Male, 78 years old with history of post op; COMPARISON: None TECHNIQUE: One radiographic view of the abdomen was obtained. FINDINGS: The bowel gas pattern is nonspecific without dilated loops of small or large bowel. There i s no evidence for organomegaly or pneumoperitoneum. The osseous structures are intact. No abnormal calcifications are present. Fecal material and gas are demonstrated throughout the colon and rectum. Fixation hardware in the spine appears intact. Left hip fixation hardware. Multilevel degeneration c hanges of the spine in degeneration of the hips. IMPRESSION: Nonspecific bowel gas pattern without radiographic evidence for acute process.
[2023-12-02] MEDS: SODIUM CHLORIDE 0.9% 1,000 ML IV SCH (13:46)
[2023-12-02] MEDS: MORPHINE SULFATE 4 MG/ML SYRINGE IV PRN (16:34)
[2023-12-02] MEDS ORDERED: LACTULOSE 20 GM/30 ML CUP PO PRN (18:21)
--- NOTE | 2023-12-02 18:21 | P.HPIM ---
History of Present Illness H&P Date: 12/02/23 Chief Complaint: Confusion, severe headache, UTI and possible sepsis, chronic pain syndrome, 78-year-old male in my office patient well-known for long time with history of coronary artery disease, atherosclerotic heart disease post KS with angioplasty and stent placement, chronic degenerative disc disease with severe spinal stenosis, hypertension, hyperlipidemia, severe GERD, chronic neuropathy, history of enlarged prostate with kidney stone post intervention recently for lithotripsy. Patient had surgical procedure 2 days ago for kidney stone left with catheter on which she noticed to have some blood since. He developed to have quite confusion along with severe headache intractable with much worsening symptoms with slight altered mental status. Presented to the emergency department with above complaint this temperature was normal with normal vitals, white blood cell was normal platelet count were only 1 16,000 with normal lactic acid but UA was very positive at the time. Patient still tolerating his current home meds which partially controlling his headache as well. Emergency department started him on 1 dose of Rocephin and had him on morphine sulfate for the headache which control his symptoms slight well decided to admit patient to the hospital for the above problem. Review of Systems: CONSTITUTIONAL: Well-developed no acute respiratory distress. Slightly confused still having headache. EYES: No icterus sclerae, no conjunctivitis. EARS, NOSE, MOUTH, THROAT, and FACE: No sore throat, lymphadenopathy, carotid bruits or deformity. RESPIRATORY: No SOB cough or wheezes. CARDIOVASCULAR: No CP, Palpitation, PND, Orthopnea, or angina. GASTROINTESTINAL: Slight abdominal discomfort with nausea no vomiting diarrhea constipation. GENITOURINARY: Post kidney stone surgery still on Fiore catheter still having slight change in color with hematuria and what looks like an infection. INTEGUMENT/BREAST: Negative for any muscular injury with mild osteoarthritis.. HEMATOLOGIC/LYMPHATIC: Negative for bleed or purpura. MUSCULOSKELTAL: Severe arthralgia myalgia and severe lower back pain. NEURLOGICAL: Severe headache with mild change in mental status with worsening confusion. BEHAVIORAL/PSYCH: Negative. ENDOCRINE: Negative. Social history: Quit smoking 25 years ago smoked 2 pack a day for 20 years, no alcohol abuse no drug use, patient is and lives with his he is retired. Family history: His mother age 73 from pancreatic cancer, father age 83 from chronic kidney disease with renal failure and CAD, patient had 1 brother with CVA and KS, patient has a daughter who had history of CVA and TIA and 1 son who was healthy with no major medical problems. Physical examination: General Appearance: Alert, still acting well but continues to have slight headache with mild confusion in between. No photophobia no meningism. Neck HEENT: Supple, no lymphadenopathy, no thyroid enlargement, no carotid b ruits. Lungs: Decreased breath sound bilaterally with fine rhonchi no crackles or wheezes. Chest Wall: Chest wall normal expansion with deep inspiration no tenderness and no deformity was found on exam, no costochondral pain or discomfort. Heart: Regular rate and rhythm, S1, S2 normal, slight irregularity with PVCs. Back: Symmetric, no curvature, ROM normal, no CVA tenderness. Abdomen: Soft, non-tender, bowel sounds active all four quadrants, slight discomfort lower abdominal region area no rebound or rigidity. Extremities: Extremities normal, atraumatic, no cyanosis or edema. Pulses: 2+ and symmetric. Skin: Skin color, texture, tugor normal, no rashes or lesions. Neurologic: Alert oriented with slight confusion, cranial nerves II through XII intact, generalized weakness of the lower extremity with abnormal balance and gait. Assessment and plan: -Severe headache with confusion: Patient's and his are concerned about urosepsis from last time had it had severe episode he almost from it at the time. His UA slightly with positive but no sign of sepsis at this point start him on Rocephin continue to watch symptoms closely continue to treat the head ache at this point. -Urinary tract infection with no sepsis: Knowing that he had just a procedure d one on his urinary tract system with a catheter (his urine is very +1 g of Rocephin was given patient will continue finasteride and Flomax for now. -Severe atherosclerotic heart disease post angioplasty and stent placement remain on metoprolol, aspirin and atorvastatin 20 medication no chest pain or angina at this point. -Previous history of CVA/TIA: No finding consistent with stroke at this point Emergency needed CAT scan of the brain shows no intracranial hemorrhage will watch patient neuro every 2 hours the next 12 hours if needed will consult neurology. -Obstructive sleep apnea: Continue to use his CPAP and more regular basis. -Chronic pain syndrome: Remain on oxycodone 5/325 mg 3 times a day along with Butrans 10 mg patch weekly and still on Lyrica total of 300 mg twice a day. Still seeing pain management on a regular basis. -Hyperlipidemia: Remain on atorvastatin 40 mg a day. -Severe neuropathy: Remain on Lyrica 300 mg twice a day. -Severe BPH with no obstruction but has a catheter at this point we will continue Flomax and finasteride. -Mild thrombocytopenia with platelet count down to 115,000 with which this can be a sign of his infection and can be early sign of sepsis repeat CBC tomorrow treat infection more aggressive. -Hyperglycemia with no sign of diabetes: Blood sugar random was 144 Accu-Chek with sliding scale coverage will be done. -GI prophylaxis: Patient will be on Pepcid 20 mg daily. -DVT prophylaxis: Knee-high TINO hose no anticoagulation will be used at this point specially with the thrombocytopenia. CODE STATUS: Full code. Admit patient to the inpatient service for more than 2 night stay. Past Medical History Past Medical History: Asthma, Coronary Artery Disease (CAD), Cancer, Fibromyalgia, GERD/Reflux, Hyperlipidemia, Hypertension, Myocardial Infarction ([place]), Osteoarthritis (OA), Prostate Disorder, Sleep Apnea/CPAP/BIPAP Additional Past Medical History / Comment(s): neuropathy-causing abdominal pain, enlarged prostate, skin cancer Last Myocardial Infarction Date:: 2012 History of Any Multi-Drug Resistant Organisms: None Reported Past Surgical History: Back Surgery, Heart Catheterization With Stent, Orthopedic Surgery, Prostate Surgery Additional Past Surgical History / Comment(s): vasectomy,ivory knee surgery, "prostate reduction", hemorrhoidectomy, rt carpal tunnel, rt shoulder rotator cuff x 2, ivory cataracts, skin cancer removed from under rt chin, 2 cardiac stents, lumbar fusion, colonoscopy, vertigo Past Anesthesia/Blood Transfusion Reactions: No Reported Reaction Additional Past Anesthesia/Blood Transfusion Reaction / Comment(s): vertigo Date of Last Stent Placement:: 2012 Past Psychological History: No Psychological Hx Reported Smoking Status: Never smoker Past Alcohol Use History: None Reported Additional Past Alcohol Use History / Comment(s): quit smoking 25 yrs ago, smoked for 20 yrs- up to 2 PPD Past Drug Use History: None Reported - Past Family History Mother Family Medical History: Cancer Additional Family Medical History / Comment(s): pancreatic Father Family Medical History: No Reported History Brother(s) Family Medical History: CVA/TIA, Myocardial Infarction ([place]) Additional Family Medical History / Comment(s): many health problems Daughter(s) Family Medical History: CVA/TIA Son(s) Family Medical History: No Reported History Medications and Allergies Home Medications Medication Instructions Recorded Confirmed Type Metoprolol Tartrate [Lopressor] 50 mg PO BID 08/28/14 12/02/23 History Ascorbic Acid [Vitamin C] 1,000 mg PO DAILY 09/13/16 12/02/23 History Atorvastatin [Lipitor] 40 mg PO HS 09/13/16 12/02/23 History Multivitamins, Thera [Multivitamin 1 tab PO DAILY 09/13/16 12/02/23 History (formulary)] Buprenorphine [Buprenorphine 1 patch TOPICAL PHELAN 03/08/21 12/02/23 History 10MCG/HR] Cholecalciferol [Vitamin D3 (25 25 mcg PO BID 03/08/21 12/02/23 History Mcg = 1000 Iu)] Pregabalin [Lyrica] 300 mg PO BID 03/08/21 12/02/23 History Docusate [Colace] 100 mg PO BID #60 capsule 03/12/21 12/02/23 Rx Finasteride [Proscar] 5 mg PO HS 11/24/23 12/02/23 History Lactulose 10 gm PO DAILY PRN 11/24/23 12/02/23 History Tamsulosin HCl [Flomax] 0.4 mg PO BID 11/24/23 12/02/23 History diazePAM [Valium] 5 mg PO BID PRN 11/24/23 12/02/23 History oxyCODONE-APAP 5-325MG [Percocet 1 tab PO TID PRN 12/02/23 12/02/23 History 5-325 mg] Allergies Allergy/AdvReac Type Severity Reaction Status Date / Time hydromorphone [From Dilaudid] AdvReac Hallucinations, Verified 12/02/23 16:22 confusion, aggitation Physical Exam Vitals: Vital Signs Temp Pulse Resp BP Pulse Ox 12/02/23 16:49 99 20 142/89 98 12/02/23 15:39 80 18 145/87 98 12/02/23 11:35 77 20 135/87 96 12/02/23 10:55 98 18 135/87 12/02/23 09:20 90 18 146/78 98 12/02/23 08:02 98.5 F 18 Intake and Output 12/02/23 12/02/23 12/02/23 06:59 14:59 22:59 Other: Weight 88.451 kg Results CBC & Chem 7: 12/02/23 08:17 12/02/23 08:17 Labs: Abnormal Lab Results - Last 24 Hours (Table) 12/02/23 12/02/23 12/02/23 Range/Units 08:17 08:17 09:00 Plt Count 115 L (150-450) k/uL Lymphocytes # 0.8 L (1.0-4.8) k/uL Creatinine 0.64 L (0.66-1.25) mg/dL Glucose 144 H (74-99) mg/dL Urine Protein 2+ H (Negative) Urine Blood Large H (Negative) Ur Leukocyte Esterase Large H (Negative) Urine RBC >182 H (0-5) /hpf Urine WBC 30 H (0-5) /hpf Urine Mucus Rare H (None) /hpf
[2023-12-02 20:08] VITALS: RESP 16
[2023-12-02] MEDS: FAMOTIDINE 20 MG TAB PO SCH (20:30)
[2023-12-02] MEDS: TAMSULOSIN 0.4 MG CAP.ER.24H PO SCH (20:30)
[2023-12-02] MEDS: DOCUSATE 100 MG CAP PO SCH (20:30)
[2023-12-02] MEDS: METOPROLOL TARTRATE 50 MG TAB PO SCH (20:30)
[2023-12-02] MEDS: CHOLECALCIFEROL 25 MCG (1000 IU) TABLET PO SCH (20:30)
[2023-12-02] MEDS: PREGABALIN 100 MG CAP PO SCH (20:30)
[2023-12-02] MEDS: ATORVASTATIN 40 MG TAB PO SCH (20:30)
[2023-12-02] MEDS: FINASTERIDE 5 MG TAB PO SCH (20:31)
[2023-12-02 21:49] LABS: Glucose,Whole Blood 116 mg/dL (70-110)
[2023-12-02] MEDS: diazePAM 5 MG TAB PO PRN (21:53)
[2023-12-02] MEDS: oxyCODONE-APAP 5-325MG 1 EACH TAB PO PRN (23:00)
[2023-12-03 06:05] LABS: Glucose,Whole Blood 116 mg/dL (70-110)
[2023-12-03] MEDS: ASCORBIC ACID 500 MG TAB PO SCH (08:41)
[2023-12-03] MEDS: MULTIVITAMINS, THERA 1 EACH TAB PO SCH (08:41)
[2023-12-03 09:04] VITALS: BP 125/65; PULSE 68; TEMP 98.6
[2023-12-03 09:53] LABS: Basophils # (A) 0.03 X 10*3/uL (0.00-0.10); Basophils % (A) 0.5 %; Eosinophils % (A) 3.5 %; HCT 37.1 % (39.6-50.0); HGB 12.4 g/dL (13.0-17.0); Lymphocytes # (A) 1.61 X 10*3/uL (0.90-5.00); Lymphocytes % (A) 28.4 %; MCH 30.6 pg (27.0-32.0); MCHC 33.4 g/dL (32.0-37.0); MCV 91.6 FL (80.0-97.0); Mean Platelet Volume 10.2 FL (9.5-12.2); Monocytes # (A) 0.73 X 10*3/uL (0.20-1.00); Monocytes % (A) 12.9 %; NRBC Per 100 WBC 0 X 10*3/uL (0.00-0.01); Neutrophils # (A) 3.09 X 10*3/uL (1.80-7.70); Neutrophils % (A) 54.5 %; Platelet Count 127 X 10*3/uL (140-440); RBC 4.05 X 10*6/uL (4.40-5.60); RDW 12.8 % (11.5-14.5); WBC 5.67 X 10*3/uL (4.50-10.00)
[2023-12-03 10:04] LABS: ALT 24 U/L (10-49); AST 26 U/L (14-35); Albumin 3.7 g/dL (3.8-4.9); Albumin/Globulin Ratio 2.18 Ratio (1.60-3.17); Alkaline Phosphatase 44 U/L (41-126); BUN/Creat Ratio 14.12 Ratio (12.00-20.00); Blood Urea Nitrogen 11.3 mg/dL (9.0-27.0); Calcium 8.8 mg/dL (8.7-10.3); Carbon Dioxide 27.6 mmol/L (21.6-31.8); Chloride 107 mmol/L (96-109); Globulin 1.7 g/dL (1.6-3.3); Glucose 108 mg/dL (70-110); Potassium 3.9 mmol/L (3.5-5.5); Sodium 143 mmol/L (135-145); Total Bilirubin 0.4 mg/dL (0.3-1.2); Total Protein 5.4 g/dL (6.2-8.2)
--- NOTE | 2023-12-03 11:59 | P.DS ---
Providers Date of admission: 12/02/23 12:30 Attending physician: Jovon Orta Consults: 12/02/23 18:22 Consult Physician Routine Consulting Provider: Vincenzo Joseph Consult Reason/Comments: confuion and change in mental status Do you want consulting provider notified?: Yes Primary care physician: Jovon Orta [facility] Hospital Course: Chief Complaint: Confusion, severe headache, UTI and possible sepsis, chronic pain syndrome, 78-year-old male in my office patient well-known for long time with history of coronary artery disease, atherosclerotic heart disease post NC with angioplasty and stent placement, chronic degenerative disc disease with severe spinal stenosis, hypertension, hyperlipidemia, severe GERD, chronic neuropathy, history of enlarged prostate with kidney stone post intervention recently for lithotripsy. Patient had surgical procedure 2 days ago for kidney stone left with catheter on which she noticed to have some blood since. He developed to have quite con fusion along with severe headache intractable with much worsening symptoms with slight altered mental status. Presented to the emergency department with above complaint this temperature was normal with normal vitals, white blood cell was normal platelet count were only 1 16,000 with normal lactic acid but UA was very positive at the time. Patient still tolerating his current home meds which part ially controlling his headache as well. Emergency department started him on 1 dose of Rocephin and had him on morphine sulfate for the headache which control his symptoms slight well decided to admit patient to the hospital for the above problem. 12/03/2023: He is feeling much better no more confusion and worry about urosepsis is not there anymore at this point Patient responded to antibiotic well his platelet count still slightly low and further workup for it including outpatient management might be needed for thrombocytopenia. In the meanwhile we will switch patient to oral antibiotic milligram go home today. Review of Systems: CONSTITUTIONAL: Well-developed no acute respiratory distress. Slightly confused still having headache. EYES: No icterus sclerae, no conjunctivitis. EARS, NOSE, MOUTH, THROAT, and FACE: No sore throat, lymphadenopathy, carotid bruits or deformity. RESPIRATORY: No SOB cough or wheezes. CARDIOVASCULAR: No CP, Palpitation, PND, Orthopnea, or angina. GASTROINTESTINAL: Slight abdominal discomfort with nausea no vomiting diarrhea constipation. GENITOURINARY: Post kidney stone surgery still on Fiore catheter still having slight change in color with hematuria and what looks like an infection. INTEGUMENT/BREAST: Negative for any muscular injury with mild osteoarthritis.. HEMATOLOGIC/LYMPHATIC: Negative for bleed or purpura. MUSCULOSKELTAL: Severe arthralgia myalgia and severe lower back pain. NEURLOGICAL: Severe headache with mild change in mental status with worsening confusion. BEHAVIORAL/PSYCH: Negative. ENDOCRINE: Negative. Physical examination: General Appearance: Alert, still acting well but continues to have slight headache with mild confusion in between. No photophobia no meningism. Neck HEENT: Supple, no lymphadenopathy, no thyroid enlargement, no carotid bruits. Lungs: Decreased breath sound bilaterally with fine rhonchi no crackles or wheezes. Chest Wall: Chest wall normal expansion with deep inspiration no tenderness and no deformity was found on exam, no costochondral pain or discomfort. Heart: Regular rate and rhythm, S1, S2 normal, slight irregularity with PVCs. Back: Symmetric, no curvature, ROM normal, no CVA tenderness. Abdomen: Soft, non-tender, bowel sounds active all four quadrants, slight discomfort lower abdominal region area no rebound or rigidity. Extremities: Extremities normal, atraumatic, no cyanosis or edema. Pulses: 2+ and symmetric. Skin: Skin color, texture, tugor normal, no rashes or lesions. Neurologic: Alert oriented with slight confusion, cranial nerves II through XII intact, generalized weakness of the lower extremity with abnormal balance and gait. Assessment and plan: -Severe headache with confusion: Patient's and his are concerned about urosepsis from last time had it had severe episode he almost from it at the time. His headache and confusion is much better will be discharged home today. -Urinary tract infection with no sepsis: After the second dose of ceftriaxone we will keep him on Ceftin to 50 mg twice a day for total of 7 days. -Hematuria: Continue to have twinge of blood in the catheter since his procedure he is to follow with urology in the next few days. -Severe atherosclerotic heart disease post angioplasty and stent placement remain on metoprolol, aspirin and atorvastatin 20 medication no chest pain or angina at this point. -Previous history of CVA/TIA: No finding consistent with stroke at this point Emergency needed CAT scan of the brain shows no intracranial hemorrhage will watch patient neuro every 2 hours the next 12 hours if needed will consult neurology. -Obstructive sleep apnea: Continue to use his CPAP and more regular basis. -Chronic pain syndrome: Remain on oxycodone 5/325 mg 3 times a day along with Butrans 10 mg patch weekly and still on Lyrica total of 300 mg twice a day. Still seeing pain management on a regular basis. -Hyperlipidemia: Remain on atorvastatin 40 mg a day. -Severe neuropathy: Remain on Lyrica 300 mg twice a day. -Severe BPH with no obstruction but has a catheter at this point we will continue Flomax and finasteride. -Mild thrombocytopenia with platelet count down continue to watch it as an outpatient. -Hyperglycemia with no sign of diabetes: Blood sugar random was 144 Accu-Chek with sliding scale coverage will be done. Discussion his symptoms are much better still have slight bed twinge of blood in the catheter is not confused not having any headache today. He is agreeable to do the second dose of Rocephin today and to be discharged home on Ceftin to be seen in the office in the next 2 to 3 days and to see urology soon after. Time spent on patient discharge was over 35 minutes. Patient Condition at Discharge: Good Plan - Discharge Summary New Discharge Prescriptions: New Cefuroxime [Ceftin] 250 mg PO BID 7 Days #14 tab Famotidine [Pepcid] 20 mg PO BID #60 tab Continue Metoprolol Tartrate [Lopressor] 50 mg PO BID Atorvastatin [Lipitor] 40 mg PO HS Ascorbic Acid [Vitamin C] 1,000 mg PO DAILY Multivitamins, Thera [Multivitamin (formulary)] 1 tab PO DAILY Cholecalciferol [Vitamin D3 (25 Mcg = 1000 Iu)] 25 mcg PO BID Buprenorphine [Buprenorphine 10MCG/HR] 1 patch TOPICAL PHELAN Finasteride [Proscar] 5 mg PO HS diazePAM [Valium] 5 mg PO BID PRN PRN Reason: Anxiety Pregabalin [Lyrica] 300 mg PO BID Docusate [Colace] 100 mg PO BID #60 capsule Lactulose 10 gm PO DAILY PRN PRN Reason: Constipation Tamsulosin HCl [Flomax] 0.4 mg PO BID oxyCODONE-APAP 5-325MG [Percocet 5-325 mg] 1 tab PO TID PRN PRN Reason: Pain Discharge Medication List Metoprolol Tartrate [Lopressor] 50 mg PO BID 08/28/14 [History] Ascorbic Acid [Vitamin C] 1,000 mg PO DAILY 09/13/16 [History] Atorvastatin [Lipitor] 40 mg PO HS 09/13/16 [History] Multivitamins, Thera [Multivitamin (formulary)] 1 tab PO DAILY 09/13/16 [History] Buprenorphine [Buprenorphine 10MCG/HR] 1 patch TOPICAL PHELAN 03/08/21 [History] Cholecalciferol [Vitamin D3 (25 Mcg = 1000 Iu)] 25 mcg PO BID 03/08/21 [History] Pregabalin [Lyrica] 300 mg PO BID 03/08/21 [History] Docusate [Colace] 100 mg PO BID #60 capsule 03/12/21 [Rx] Finasteride [Proscar] 5 mg PO HS 11/24/23 [History] Lactulose 10 gm PO DAILY PRN 11/24/23 [History] Tamsulosin HCl [Flomax] 0.4 mg PO BID 11/24/23 [History] diazePAM [Valium] 5 mg PO BID PRN 11/24/23 [History] oxyCODONE-APAP 5-325MG [Percocet 5-325 mg] 1 tab PO TID PRN 12/02/23 [History] Cefuroxime [Ceftin] 250 mg PO BID 7 Days #14 tab 12/03/23 [Rx] Famotidine [Pepcid] 20 mg PO BID #60 tab 12/03/23 [Rx] Follow up Appointment(s)/Referral(s): Thomas Hope MD [STAFF PHYSICIAN] - 1 Week Jovon Orta MD [Primary Care Provider] - 1-2 days Discharge Disposition: HOME SELF-CARE
[2023-12-03] MEDS ORDERED: BUPRENORPHINE TOPICAL SCH (18:00)
== END 2023-12-03 13:56 | disposition home or self-care (01) ==
LOC: EC 08:01 → 6NMEDSUR 12:30
PROVIDERS: ADMIT Internal Medicine Geriatric Medicine; ATTEND Internal Medicine Geriatric Medicine
DX: R51.9 Headache, unspecified (principal); R10.9 Unspecified abdominal pain; R31.9 Hematuria, unspecified; I25.10 Atherosclerotic heart disease of native coronary artery without angina pectoris; I10 Essential (primary) hypertension; I25.2 Old myocardial infarction; N39.0 Urinary tract infection, site not specified; G47.30 Sleep apnea, unspecified; G62.9 Polyneuropathy, unspecified; E78.5 Hyperlipidemia, unspecified; K21.9 Gastro-esophageal reflux disease without esophagitis; N40.0 Benign prostatic hyperplasia without lower urinary tract symptoms; R41.0 Disorientation, unspecified; G47.33 Obstructive sleep apnea (adult) (pediatric); D69.6 Thrombocytopenia, unspecified; G89.4 Chronic pain syndrome; R73.9 Hyperglycemia, unspecified; Z85.828 Personal history of other malignant neoplasm of skin; Z95.5 Presence of coronary angioplasty implant and graft; Z88.8 Allergy status to other drugs, medicaments and biological substances; Z86.73 Personal history of transient ischemic attack (TIA), and cerebral infarction without residual deficits; Z79.899 Other long term (current) drug therapy; Z87.891 Personal history of nicotine dependence; Z99.89 Dependence on other enabling machines and devices
CPT/HCPCS: 96376; 96361; 96365; 96366 ×2; 96367; 96375; 99285; 36415; 80053 ×2; 83605; 85025 ×2; 85610; 85730; 81001; 87040; 87086; 74018; 70450; G0378 ×2; S0138; J2270 ×2; J2765; J0696 ×2; J0131

== ENCOUNTER → 2024-08-26 | Outpatient (CLI) | payer MEDICARE ==
--- NOTE | 2024-08-28 22:38 | US ---
EXAMINATION TYPE: US thyroid st tissue head/neck DATE OF EXAM: 08/26/2024 COMPARISON: 05/01/12 CLINICAL INDICATION: Male, 79 years old with history of E04.1 THYROID NODULE; Pt states he had a more recent thyroid US done at [facility] 1-2 years ago and then had a FNA done on a nodul e on the left lobe. TECHNIQUE: Grayscale and color Doppler imaging of the thyroid gland. FINDINGS: GLAND SIZE: Right Lobe: 4.0 x 1.4 x 1.6 cm Overall Parenchyma: homogeneous Left Lobe: 2.9 x 2.5 x 2.0 cm Overall Parenchyma: homogeneous Isthmus Thickness: 1.0 cm NODULES RIGHT: # of nodules measured on right: 1 1. 0.7 X 0.7 x 0.6 cm, lower mid, solid or almost completely solid, nodule, which is wider than tristan l, with ill-defined margins, without echogenic foci. TR 4 Prior size: 0.8 x 0.8 x 0.5 cm LEFT: # of nodules measured on left: 1 1. 2.4 X 1.9 x 1.5 cm, mid mid, solid or almost completely solid, hyperechoic nodule, which is wide r than tall, with ill-defined margins, without echogenic foci. TR 3 ISTHMUS: # of nodules measured in the isthmus: 0 Bilateral neck scanned, no evidence of lymphadenopathy. IMPRESSION: Mildly suspicious nodule left lobe thyroid. Follow-up in one year is recommended 2017 ACR TI-RADS LEVEL: TR-RADS 3 - Mildly Suspicious: Follow if > 1.5 cm, FNA if > 2.5 cm *Highest TI-RADS level nodule reported [email or web address] [facility], , 08/28/2024 10:36 PM
== END | disposition home or self-care (01) ==
LOC: RADUSWWP 15:54
PROVIDERS: ATTEND Internal Medicine Geriatric Medicine
DX: E04.1 Nontoxic single thyroid nodule (principal)
CPT/HCPCS: 76536